=== PATIENT | female | born 1960 | race Two or more races ===

== ENCOUNTER 2022-11-03 20:22 | Emergency (ER) | payer MEDICAID ==
[~2022-11-03] VITALS: Ht 160 cm; Wt 65.8 kg
[2022-11-03] MEDS ORDERED: FLUORESCEIN SODIUM OPHTH 1 EA STRIP ONE ×2 (20:56→21:07)
[2022-11-03] MEDS ORDERED: ACETAMINOPHEN 650 MG/20.3 ML UDC PO ONE (21:00)
[2022-11-03] MEDS ORDERED: FLUORESCEIN SODIUM OPHTH 1 EA STRIP OP ONE (21:00)
--- NOTE | 2022-11-03 21:00 | NUR ---
Pt is noted alert, responsive brought in by Daughter in Law, C/O Right Eyebrow Redness woith Dry Scab , started on . Pt care continue as awaits to been seem by .
[2022-11-03] MEDS ORDERED: ACETAMINOPHEN 325 MG TABLET ONE (21:08)
[2022-11-03] MEDS ORDERED: VALACYCLOVIR HCL 500 MG TABLET ONE (21:11)
--- NOTE | 2022-11-03 21:16 | NUR ---
Pt is been medicated with Valtrex 1, 000mg PO, Tylenol 650mg PO and Fluor-1Strp after been seen by MD. Pt care continue.
[2022-11-03] MEDS ORDERED: VALA100026 PO (21:25)
[2022-11-03] MEDS ORDERED: VALACYCLOVIR HCL 500 MG TABLET PO ONE (21:30)
--- NOTE | 2022-11-03 21:51 | NUR ---
Pt is noted stable, off the unit as she is been discharge to home with daughter in Law at her side as all discharge instructions given.
[2022-11-03 21:53] VITALS: BP 138/72
== END 2022-11-03 22:03 | disposition home or self-care (01) ==
LOC: ER 20:27
DX: B02.9 Zoster without complications (principal); R21 Rash and other nonspecific skin eruption; F17.200 Nicotine dependence, unspecified, uncomplicated; Z79.899 Other long term (current) drug therapy